=== PATIENT | male | born 1990 | race Caucasian/White ===

== ENCOUNTER 2023-06-13 18:56 | Emergency (ER) | payer SELFPAY ==
[~2023-06-13] VITALS: Ht 172.7 cm; Wt 77.0 kg
[2023-06-13 19:16] VITALS: O2SAT 100
[2023-06-13] MEDS ORDERED: OCUFLX LEFTEYE (22:37)
[2023-06-13] MEDS: TETANUS, DIPHTHERIA, PERTUSSIS VAC/PF 0.5ML (>10YR OLD) IM ONE (22:47)
[2023-06-13] MEDS: TETRACAINE 0.5% OPHTH DROPS 4ML LEFTEYE STA (22:48)
[2023-06-13 23:06] VITALS: BP 136/88; PULSE 75; RESP 18; TEMP 98.8
== END 2023-06-13 23:09 | disposition home or self-care (01) ==
LOC: ER 18:56
DX: T15.02XA Foreign body in cornea, left eye, initial encounter (principal)
CPT/HCPCS: 90715; 65220; 90471; 99284; Z7610